=== PATIENT | male | born 1975 | race Caucasian/White ===

== ENCOUNTER 2019-05-23 10:48 | Inpatient (IN) | payer BC ==
[2019-05-20 10:24] LABS: BASOPHILS % 0.5 % (0.0-1.0); EOSINOPHILS # (AUTO) 0.3 (0.0-0.4); EOSINOPHILS % 2.9 % (0.0-6.0); HEMATOCRIT 43.9 % (38.2-49.6); HEMOGLOBIN 14.9 g/dL (14.0-18.0); LYMPHOCYTES # (AUTO) 2.7 (1.0-3.2); LYMPHOCYTES % 31.6 % (18.0-39.1); MEAN CORPUSCULAR HEMOGLOBIN 31.2 pg (28-32); MEAN CORPUSCULAR HGB CONC 33.9 g/dL (31-35); MEAN CORPUSCULAR VOLUME 91.8 fL (81-99); MONOCYTES # (AUTO) 0.8 (0.2-0.8); MONOCYTES % 9.7 % (4.4-11.3); NEUTROPHILS # (AUTO) 4.8 (2.1-6.9); PLATELET COUNT 240 x10e3/uL (140-360); RED BLOOD COUNT 4.78 x10e6/uL (4.3-5.7); RED CELL DISTRIBUTION WIDTH 11.9 % (11.7-14.4)
[2019-05-20 10:40] LABS: ALANINE AMINOTRANSFERASE 24 IU/L (0-55); ALBUMIN 3.9 g/dL (3.5-5.0); ALBUMIN/GLOBULIN RATIO 1.1 (0.8-2.0); ALKALINE PHOSPHATASE 88 IU/L (40-150); ANION GAP 11.3 mmol/L (8-16); BLOOD UREA NITROGEN 14 mg/dL (7-26); BUN/CREATININE RATIO 16 (6-25); CALCIUM 9.6 mg/dL (8.4-10.2); CARBON DIOXIDE 29 mmol/L (22-29); CHLORIDE 103 mmol/L (98-107); CREATININE, SERUM 0.87 mg/dL (0.72-1.25); EST GLOMERULAR FILTRATION RATE > 60 ML/MIN (60-); GLUCOSE 98 mg/dL (74-118); POTASSIUM 4.3 mmol/L (3.5-5.1); SODIUM 139 mmol/L (136-145)
[~2019-05-23] VITALS: Ht 170.2 cm; Wt 86.2 kg
[~2019-05-23 10:48] MED LIST: MULTI-VITAMIN1 EACH PO; PROBIOTIC250 MG PO; TURMERIC 500 M1 EACH PO
[2019-05-23] MEDS ORDERED: PIPER-TAZ 3.375 GM 50 ML ONE (11:04)
[2019-05-23] MEDS ORDERED: CLINDAMYCIN 300MG 50 ML IV ONE (11:05)
[2019-05-23] MEDS ORDERED: GENTAMICIN 80MG/NS 100 ML 200 ML IV ONE (11:41)
[2019-05-23] MEDS ORDERED: INDIGOTINDISULFONATE SODIUM 8 MG/1 ML IJ ONE (12:33)
[2019-05-23] MEDS ORDERED: IBUPROFEN 800MG/ 250ML 250 ML IV ONE (14:16)
[2019-05-23] MEDS ORDERED: HYDROMORPHONE 2MG/ML 2 MG/ML ML ONE (14:16)
[2019-05-23] MEDS ORDERED: NALOXONE HCL INJ 0.4 MG/ML AMP IV PRN (15:30)
[2019-05-23] MEDS ORDERED: DIPHENHYDRAMINE HCL 25 MG CAP PO PRN (15:30)
[2019-05-23] MEDS ORDERED: MORPHINE SULFATE 1 MG/ML 30ML PCA IV PRN (15:30)
[2019-05-23] MEDS ORDERED: ONDANSETRON HCL INJ 2MG/ML 2ML 2 MG/ML VIAL IV PRN (15:30)
[2019-05-23] MEDS ORDERED: MORPHINE SULFATE 1 MG/ML 30ML PCA ONE (15:51)
[2019-05-23] MEDS ORDERED: MEPERIDINE HCL INJ 25 MG/ML VIAL ONE (16:11)
--- NOTE | 2019-05-23 16:34 | NUR ---
received report from recovery unit operator for pt coming to room 110; VSS; awaiting arrival to unit.
--- NOTE | 2019-05-23 16:50 | NUR ---
pt arrived to unit from recovery, no signs of distress, awake, alert, oriented. will continue to monitor.
[2019-05-23 16:58] LABS: BASOPHILS # (AUTO) 0.1 (0.0-0.1); BASOPHILS % 0.3 % (0.0-1.0); EOSINOPHILS % 0.1 % (0.0-6.0); HEMATOCRIT 41.6 % (38.2-49.6); HEMOGLOBIN 13.6 g/dL (14.0-18.0); LYMPHOCYTES # (AUTO) 1.7 (1.0-3.2); LYMPHOCYTES % 8.5 % (18.0-39.1); MEAN CORPUSCULAR HGB CONC 32.7 g/dL (31-35); MEAN CORPUSCULAR VOLUME 94.8 fL (81-99); MONOCYTES # (AUTO) 0.3 (0.2-0.8); MONOCYTES % 1.5 % (4.4-11.3); NEUTROPHILS # (AUTO) 17.3 (2.1-6.9); NEUTROPHILS % 88.7 % (38.7-80.0); PLATELET COUNT 215 x10e3/uL (140-360); RED BLOOD COUNT 4.39 x10e6/uL (4.3-5.7); RED CELL DISTRIBUTION WIDTH 11.9 % (11.7-14.4)
[2019-05-23 16:59] VITALS: BP 117/74
[2019-05-23 17:10] VITALS: BP 117/74
[2019-05-23 17:16] LABS: ANION GAP 15.6 mmol/L (8-16); BLOOD UREA NITROGEN 13 mg/dL (7-26); BUN/CREATININE RATIO 14 (6-25); CALCIUM 8.3 mg/dL (8.4-10.2); CARBON DIOXIDE 22 mmol/L (22-29); CHLORIDE 105 mmol/L (98-107); CREATININE, SERUM 0.91 mg/dL (0.72-1.25); EST GLOMERULAR FILTRATION RATE > 60 ML/MIN (60-); GLUCOSE 141 mg/dL (74-118); POTASSIUM 4.6 mmol/L (3.5-5.1); SODIUM 138 mmol/L (136-145)
[2019-05-23] MEDS ORDERED: DEXAMETHASONE SOD PHOS INJ 4 MG/ML VIAL ONE (18:23)
[2019-05-23] MEDS ORDERED: ROCURONIUM BROMIDE 10 MG/ML 5ML VIAL ONE (18:23)
[2019-05-23] MEDS ORDERED: SEVOFLURANE INHAL SOLN 250 ML PEN BTL ONE (18:23)
[2019-05-23] MEDS ORDERED: GLYCOPYRROLATE INJ 1MG/ 5 ML SYR ONE (18:23)
[2019-05-23] MEDS ORDERED: ONDANSETRON HCL INJ 2MG/ML 2ML 2 MG/ML VIAL ONE (18:23)
[2019-05-23] MEDS ORDERED: LIDOCAINE HCL 2% LOCAL INJ 5 ML SDV VIAL INJ ONE (18:23)
[2019-05-23] MEDS ORDERED: PROPOFOL IV EMULSION 10 MG/ML 20 ML VIAL ONE (18:23)
[2019-05-23] MEDS ORDERED: NEOSTIGMINE 5 MG/5ML SYR ONE (18:23)
[2019-05-23] MEDS ORDERED: MIDAZOLAM HCL 2 MG/2 ML VIAL ONE (18:25)
[2019-05-23] MEDS ORDERED: FENTANYL CITRATE/PF 100MCG/2 ML INJ ONE (18:25)
[2019-05-23] MEDS ORDERED: KETAMINE HCL INJ 50 MG/ML 10 ML VIAL ONE (18:25)
[2019-05-23] MEDS: PHENAZOPYRIDINE HCL 100 MG TAB PO SCH (18:28)
[2019-05-23] MEDS: D5.45%NS/KCL 20MEQ 1,000 ML IV SCH (18:28)
[2019-05-23] MEDS: DOCUSATE SODIUM 100 MG CAP PO SCH (18:28)
--- NOTE | 2019-05-23 19:05 | NUR ---
Completed bedside report with morning nurse. Pt alert and orient to name, lying in bed HOB 75 degrees. Denies pain or discomfort, MOSAIC FLOOR LAYER pump at bedside in place. Call light within reach. Will continue to monitor.
[2019-05-23 20:00] VITALS: BP 107/70
--- NOTE | 2019-05-23 20:30 | NUR ---
x2 Abd pads changed from perineum I&D, moderate saturation of blood. No s/s of infection, no odor. Will continue to monitor.
[2019-05-23 21:00] VITALS: BP 107/70
[2019-05-23] MEDS: PIPER-TAZ 3.375 GM 50 ML IV SCH (21:00)
[2019-05-23] MEDS: CLINDAMYCIN 300MG 50 ML IV SCH (22:00)
[2019-05-24] VITALS (8 sets, daily range): BP systolic 93–114; BP diastolic 58–66
--- NOTE | 2019-05-24 00:48 | Operative Report ---
DATE OF PROCEDURE: 05/23/2019 SURGEON: Andrey Streeter MD PREOPERATIVE DIAGNOSES: 1. Prostate cancer. 2. Urethral stricture disease. POSTOPERATIVE DIAGNOSES: 1. Prostate cancer. 2. Urethral stricture disease. OPERATIONS PERFORMED: 1. Cystourethroscopy (separate procedure performed to evaluate the patient's urethra in light of the history of stricture disease). 2. Bilateral nerve-sparing radical perineal prostatectomy. ORACLE APPLICATION CONSULTANT: Joslyn Streeter MD ANESTHESIA: General. COMPLICATIONS: None. CLINICAL SUMMARY: Cielo Lam is a 44-year-old man with a strong family history of prostate cancer. The patient was evaluated for an elevated PSA and was found to have prostate biopsies that were positive for adenocarcinoma at the right mid and right apex. The patient carefully weighed the risks, benefits, and alternatives of the various standard modalities of managing prostate cancer including the different surgical modalities. He understands the risks of bleeding, infection, injury to adjacent structures, incontinence, impotence, need for additional procedures, incomplete cancer resection, and he elected to proceed. OPERATIVE PROCEDURE IN DETAIL: Informed consent was verified. Cielo Lam was properly identified, taken to the operating room, placed on the operating table in the supine position. Anesthesia was uneventfully begun. The patient's genitalia were prepared and draped in usual sterile fashion. A flexible cystoscope was inserted into the patient's urethra. The very distal urethra was unremarkable. The fossa navicularis was minimally narrowed. The remainder of the urethra was normal until the bulbar region where there was circumferential scarring without an actual obstructing stricture. We went through the normal sphincteric region, went through the prostate bed, which was significant evidence of BPH. We entered the patient's bladder, which revealed grade 1 trabeculations throughout, but there were no tumors. There were no stones. No suspicious lesions were identified. Normally positioned and configured ureteral orifices were noted. The cystoscope was withdrawn. The patient was then carefully and gently and gradually placed in an exaggerated lithotomy position with all pressure points carefully well padded. His perineum was shaved. His abdomen, genitalia, perineum, and buttocks were prepared and draped in usual sterile fashion. A curvilinear incision was then made. The apex being the midpoint of the perineum and the corners being just medial to each ischial tuberosity. The incision was carried through the skin and then developed laterally on each side. We had the space laterally developed on each side and intersphincteric approach was utilized. We then incised across the perineal body and exposed the prostate. The posterior surface of the prostate was further exposed after incising the Denonvilliers' fascia. We utilized the Easley perineal retractor. We placed the curved Lowsley retractor without any difficulty. We then performed bilateral nerve sparing. The neurovascular complexes were dissected free from the prostatic capsule bilaterally. They were not significantly adherent, so we felt safe sparing the nerves, the neurovascular bundle even on this side affected by the cancer. It did not seem to impinge on the prostatic capsule to dissected free. Once the neurovascular bundles were away, we proceeded with the apical dissection. We then incised the urethra just distal to the prostatic apex, curved Lowsley retractor was removed. We incised the urethra dorsally and we also utilized a straight Lowsley retractor. We then isolated the prostate and worked on the bladder neck, trying to preserve as much of the bladder neck fibers were still ensuring a negative margin. A small piece of bladder neck was sent to the pathologist for evaluation to ensure our plane of dissection was indeed correct. We then incised the bladder anteriorly at the level of the bladder neck. We removed the straight Lowsley retractor and then utilized Mederos catheter as a retractor. We completed the dissection laterally and hemoclipped and divided the lateral pedicle. We then incised the posterior bladder at the level of the bladder neck, identified, ligated and divided both ejaculatory duct. We than ligated and divided both ampulla of the vas. We then isolated the seminal vesicles bilaterally, ligated them and divided them. Care was taken to divide the seminal vesicles approximately custodial and not aggressively seek the tips of the seminal vesicles to avoid injury to neurovascular complexes. Copious irrigation was performed. We verified hemostasis. We then proceeded with the urethrovesical anastomosis, 4 anterior sutures were placed and tied down. We then performed a bladder neck reconstruction. We could see the blue effluxing from the ureteral orifices, so the indigo carmine that was given by the picker packer. Once we approximated the posterior bladder neck with interrupted [id number] sutures, we proceeded with completing the urethrovesical anastomosis utilizing a total of eight sutures. Prior to tying down the last sutures, the Mederos catheter was exchanged to a brand new 20-Occitan 10 mL Mederos catheter filled with a sterile water. We copiously irrigated. We verified good hemostasis. We approximated the midline with a heavy Vicryl suture in interrupted [id number] fashion. A half-inch Sheridan drain was placed and secured to the corner of the incision with chromic suture. The Sheridan drain was placed in such a way as to provide drainage for both bladder. The subcutaneous layer was approximated with Vicryl suture and skin was approximated with vertical mattress sutures utilizing 3-0 chromic. The patient was then very carefully and gently repositioned in the supine position. Sterile dressings were applied and held in place with mesh panties. The catheter was irrigated to and fro to ensure there were clots in the bladder and it was working appropriately. Bluish efflux could be seen from Mederos catheter. The patient was then uneventfully reversed from anesthesia and taken to recovery room in stable condition. There were no complications to the procedure. The patient tolerated the procedure well. Sponge, needle, and instrument counts were correct x2 at the end of the case. Estimated blood loss was 500 mL. We will plan to proceed with routine postoperative care and ongoing urological followup. Andrey Streeter MD [place]/MODL /[id number]
[2019-05-24] MEDS: PIPER-TAZ 3.375 GM 50 ML IV SCH ×3 (05:30→22:00)
[2019-05-24] MEDS: D5.45%NS/KCL 20MEQ 1,000 ML IV SCH ×2 (05:30→07:19)
[2019-05-24 05:43] LABS: BASOPHILS % 0.1 % (0.0-1.0); HEMATOCRIT 34.8 % (38.2-49.6); HEMOGLOBIN 11.7 g/dL (14.0-18.0); LYMPHOCYTES # (AUTO) 2.5 (1.0-3.2); LYMPHOCYTES % 15.2 % (18.0-39.1); MEAN CORPUSCULAR HEMOGLOBIN 30.7 pg (28-32); MEAN CORPUSCULAR HGB CONC 33.6 g/dL (31-35); MEAN CORPUSCULAR VOLUME 91.3 fL (81-99); MONOCYTES # (AUTO) 1.8 (0.2-0.8); MONOCYTES % 11.1 % (4.4-11.3); NEUTROPHILS % 73.1 % (38.7-80.0); PLATELET COUNT 202 x10e3/uL (140-360); RED BLOOD COUNT 3.81 x10e6/uL (4.3-5.7)
[2019-05-24] MEDS: CLINDAMYCIN 300MG 50 ML IV SCH ×3 (06:00→21:00)
[2019-05-24 06:03] LABS: ANION GAP 12.3 mmol/L (8-16); BLOOD UREA NITROGEN 12 mg/dL (7-26); BUN/CREATININE RATIO 14 (6-25); CALCIUM 8.2 mg/dL (8.4-10.2); CARBON DIOXIDE 24 mmol/L (22-29); CHLORIDE 106 mmol/L (98-107); CREATININE, SERUM 0.87 mg/dL (0.72-1.25); EST GLOMERULAR FILTRATION RATE > 60 ML/MIN (60-); GLUCOSE 110 mg/dL (74-118); POTASSIUM 4.3 mmol/L (3.5-5.1); SODIUM 138 mmol/L (136-145)
--- NOTE | 2019-05-24 06:30 | NUR ---
PT RESTING IN BED HOB 60 DEGREES. DENIES PAIN AT THIS TIME. CEDENO FLOWING DARK BLOOD URINE. ROOM SERVICE RUNNER PUMP IN PLACE. CALL [facility] WITHIN REACH.
[2019-05-24] MEDS ORDERED: ONDANSETRON HCL INJ 2MG/ML 2ML 2 MG/ML VIAL IV PRN (08:30)
[2019-05-24] MEDS ORDERED: CELECOXIB 100 MG CAP PO PRN (08:30)
[2019-05-24] MEDS ORDERED: HYDROCODONE/APAP 7.5MG-325MG 1 EA TAB PO PRN (08:30)
[2019-05-24] MEDS ORDERED: CEPACOL SORE THROAT LOZENGES PO PRN (08:30)
[2019-05-24] MEDS ORDERED: ONDANSETRON HCL 4 MG ORAL DISINTEGRATING TAB PO PRN (08:30)
--- NOTE | 2019-05-24 08:30 | NUR ---
The pt. was received in bed awake with CONTRACTS REPRESENTATIVE and iv fluids functional. The pt. denies pain or discomfort at this time and wa advised that the plan for today is to walk in the room and hallway.
[2019-05-24] MEDS: PHENAZOPYRIDINE HCL 100 MG TAB PO SCH ×3 (08:53→17:11)
[2019-05-24] MEDS: DOCUSATE SODIUM 100 MG CAP PO SCH ×2 (08:53→17:11)
[2019-05-24] MEDS: SODIUM CHLORIDE 0.9% 1000ML 1,000 ML IV SCH ×2 (10:52→17:24)
--- NOTE | 2019-05-24 12:17 | History and Physical ---
SOUVENIR AND NOVELTY MAKER: Andrey Streeter MD. REASON FOR ADMISSION: Status post radical prostatectomy secondary to prostate cancer and early age. HISTORY OF PRESENT ILLNESS: The patient is a 44-year-old male, extensive family history of prostate cancer. The patient has prostate cancer. He has urinary obstruction, came in for elective surgery. The patient is status post radical prostatectomy done by Dr. Andrey Streeter on May 23, 2019. Postoperatively, the patient on EXECUTIVE ADMIN pump. He is stable. He is on clindamycin and Zosyn. The patient had no complaint of chest pain or shortness of breath. He does have a Mederos catheter with some discomfort consistent with postoperative care. PAST MEDICAL HISTORY: Prostate cancer, enlarged prostate, and urinary retention. PAST SURGICAL HISTORY: Status post prostate removal. SOCIAL HISTORY: The patient does not smoke or use alcohol. No regular drugs. ALLERGIES: BEE VENOM, PROTEIN. HOME MEDICATIONS: Multivitamins and Probiotic. PHYSICAL EXAMINATION: VITAL SIGNS: Temperature is 99, blood pressure 193/60, pulse rate 70, and respirations 18. GENERAL: The patient is not in acute distress. He is awake. HEENT: Normocephalic, atraumatic. Pupils reactive. Anicteric. NECK: Supple grossly. PULMONARY: Diminished breath sounds. CARDIOVASCULAR: S1, S2. Regular rate and rhythm. ABDOMEN: Soft, nontender, status post prostatectomy, pelvic tenderness with Mederos catheter in place. EXTREMITIES: No cyanosis or edema. NEUROLOGIC: No gross focal deficit. LABORATORY DATA: Sodium is 138, potassium 4.3, chloride 106, bicarb 24, BUN 12, creatinine 0.6, glucose 100. WBC is 16.4, hemoglobin 11.7, hematocrit 34.8, platelets 202. IMPRESSION: 1. Post prostatectomy secondary to prostate cancer with extensive early prostate cancer in the family. 2. Low-grade temperature 99.3, resolved. 3. Reactive leukocytosis, most likely. 4. Low blood pressure, most likely secondary to post op asymptomatic. PLAN: The patient will get normal saline. Stop the EXECUTIVE ADMIN. [place] p.r.n. Celebrex p.r.n. Continue with any home medication. Continue to have incentive spirometry. Increase in activity. Change IV fluid to normal saline 100 mL an hour for now. Potassium is 4.3. We will monitor the patient closely. MD SARAH Gavin/CHARLAL /[id number]
--- NOTE | 2019-05-24 14:10 | NUR ---
Visit made by the Spiritual Care Department Pastoral Visitor, Michaela Silveira. PV provided pastoral presence, hospitality, and supportive listening. Pastoral Visitor informed pt/family of the scope of Is Technician Services and availability. ROSEANNE KOEHLER Sand Mill Operator Facing [employer] Spiritual Care Department O: [phone] Pager: [phone] ([phone] number calling from)
[2019-05-25] VITALS: BP 100/59
[2019-05-25 04:00] VITALS: BP 107/70
[2019-05-25] MEDS: CLINDAMYCIN 300MG 50 ML IV SCH (05:00)
[2019-05-25] MEDS: PIPER-TAZ 3.375 GM 50 ML IV SCH (06:00)
[2019-05-25 06:02] LABS: BASOPHILS # (AUTO) 0.1 (0.0-0.1); BASOPHILS % 0.4 % (0.0-1.0); EOSINOPHILS # (AUTO) 0.1 (0.0-0.4); EOSINOPHILS % 0.9 % (0.0-6.0); HEMATOCRIT 36.1 % (38.2-49.6); HEMOGLOBIN 11.9 g/dL (14.0-18.0); LYMPHOCYTES # (AUTO) 3.5 (1.0-3.2); LYMPHOCYTES % 23.7 % (18.0-39.1); MEAN CORPUSCULAR HEMOGLOBIN 30.9 pg (28-32); MEAN CORPUSCULAR VOLUME 93.8 fL (81-99); MONOCYTES # (AUTO) 1.5 (0.2-0.8); MONOCYTES % 10.1 % (4.4-11.3); NEUTROPHILS # (AUTO) 9.6 (2.1-6.9); NEUTROPHILS % 64.5 % (38.7-80.0); PLATELET COUNT 221 x10e3/uL (140-360); RED BLOOD COUNT 3.85 x10e6/uL (4.3-5.7); RED CELL DISTRIBUTION WIDTH 12.1 % (11.7-14.4)
[2019-05-25 06:18] LABS: ANION GAP 13.5 mmol/L (8-16); BLOOD UREA NITROGEN 9 mg/dL (7-26); BUN/CREATININE RATIO 9 (6-25); CARBON DIOXIDE 26 mmol/L (22-29); CHLORIDE 106 mmol/L (98-107); CREATININE, SERUM 0.99 mg/dL (0.72-1.25); EST GLOMERULAR FILTRATION RATE > 60 ML/MIN (60-); GLUCOSE 107 mg/dL (74-118); POTASSIUM 4.5 mmol/L (3.5-5.1); SODIUM 141 mmol/L (136-145)
[2019-05-25] MEDS: SODIUM CHLORIDE 0.9% 1000ML 1,000 ML IV SCH (06:18)
--- NOTE | 2019-05-25 07:00 | NUR ---
The pt. is up and sitting on the sofa. He reports a bowel movement on the previous shift and requires new t e d hose and socks due to stool being loose.
[2019-05-25 07:46] VITALS: BP 94/57
[2019-05-25 07:58] VITALS: BP 94/57
[2019-05-25] MEDS: DOCUSATE SODIUM 100 MG CAP PO SCH (08:29)
[2019-05-25] MEDS: PHENAZOPYRIDINE HCL 100 MG TAB PO SCH ×2 (08:29→12:29)
[2019-05-25 11:51] VITALS: BP 99/60
--- NOTE | 2019-05-25 15:10 | NUR ---
The pt was escorted to private care and placed into the care of his spouse. He was provided dressings, bedside and leg drainage bags,mesh underwear and instructions for changing the bag prior to discharge.
--- NOTE | 2019-05-26 05:40 | Discharge Summary ---
PRESSURIZATION MECHANIC: Dr. Andrey Streeter. FINAL DIAGNOSES: 1. Prostate cancer. 2. Status post radical prostatectomy. 3. Mederos catheter in place with hematuria. SUMMARY: The patient is a 44-year-old male with prostate cancer, aggressive. He does have family history of prostate cancer. The patient is now status post radical prostatectomy. The patient has Mederos catheter in place. He does have some hematuria, but not significant. Hemoglobin and hematocrit are 11.9 and 36.1. The patient seems comfortable. BUN and creatinine are 9 and 0.99 respectively. The patient is stable. He should be able to go home today after clearing with Dr. Andrey Streeter. The patient is stable, prescription in chart. The patient may go home when cleared. MD SARAH Gavin/DARCI /[id number]
== END 2019-05-25 15:19 | disposition home or self-care (01) | DRG 707 ==
LOC: OR 10:48 → PACU V 15:30 → MED/SURG 16:50
PROVIDERS: ADMIT Urology; ATTEND Urology
PROC: 0T7D4ZZ Dilation of Urethra, Percutaneous Endoscopic Approach (ICD-10-PCS; 2019-05-23)
PROC: 0TBC4ZX Excision of Bladder Neck, Percutaneous Endoscopic Approach, Diagnostic (ICD-10-PCS; 2019-05-23)
PROC: 0VT04ZZ Resection of Prostate, Percutaneous Endoscopic Approach (ICD-10-PCS; principal; 2019-05-23 12:39)
PROC: 0VT34ZZ Resection of Bilateral Seminal Vesicles, Percutaneous Endoscopic Approach (ICD-10-PCS; 2019-05-23 12:39)
DX: C61 Malignant neoplasm of prostate (principal); N13.8 Other obstructive and reflux uropathy; N13.5 Crossing vessel and stricture of ureter without hydronephrosis; N40.1 Benign prostatic hyperplasia with lower urinary tract symptoms; R33.8 Other retention of urine; Z80.42 Family history of malignant neoplasm of prostate; Z80.52 Family history of malignant neoplasm of bladder; K40.90 Unilateral inguinal hernia, without obstruction or gangrene, not specified as recurrent; R35.1 Nocturia; R31.0 Gross hematuria
CPT/HCPCS: 36415; 80048; 80053; 83735; 85025; 86850; 86900; 88305; 88309; 88331; 93005; J1100; J1580; J2001; J2175; J2250; J2270; J2405; J2543; J3010; J7030

== ENCOUNTER → 2019-06-06 | Outpatient (CLI) | payer BC ==
[~2019-06-06] MED LIST changes: +IOTHALAMATE MEGLUMINE 17.20% 250 ML BTL ONE
--- NOTE | 2019-06-06 09:59 | Diagnostic Imaging Report ---
Fluoroscopic cystogram SOLUTIONS EXECUTIVE CLOUD SALES(S): Mony Islas MD Comparison: None. Fluoroscopy Time: 0.5 minutes Total dose: 24.4 mGy Procedure: Salesperson Books images were obtained showing multiple surgical clips in the pelvis status post radical prostatectomy. Small phleboliths in the pelvis. Cysto-conray contrast material was used to fill the bladder via the indwelling schmitt catheter. Multiple images in multiple projections were obtained, demonstrating no evidence of anastomotic leak. The Schmitt catheter was subsequently removed. IMPRESSION: No evidence of anastomotic leak status post radical prostatectomy. Successful removal of indwelling Schmitt catheter following cystography. Signed by: Mony Islas MD on 06/06/2019 9:56 AM
== END ==
LOC: DX 08:18
PROVIDERS: ATTEND Urology
DX: N35.919 Unspecified urethral stricture, male, unspecified site (principal)
CPT/HCPCS: 74430; Q9958